=== PATIENT | male | born 1985 | race Caucasian/White ===

== ENCOUNTER 2021-05-05 17:04 | Emergency (ER) | payer OTHER ==
[2021-05-05 19:49] LABS: HEMOGLOBIN 14.7 gm/dl (14.0-17.5); RED BLOOD COUNT 4.31 M/UL (4.20-5.50); WHITE BLOOD COUNT 7.5 K/UL (4.5-11.0)
[2021-05-05 20:10] LABS: BUN/CREATININE RATIO 15 (0-10)
[2021-05-05] MEDS ORDERED: LODINE CAP 300300 MG PO (22:31)
[2021-05-05] MEDS ORDERED: NORFLEX 100 MG100 MG PO (22:31)
== END 2021-05-05 22:50 | disposition home or self-care (01) ==
LOC: ER1 17:04
PROVIDERS: Physician Assistant
DX: S93.601A Unspecified sprain of right foot, initial encounter (principal); S83.91XA Sprain of unspecified site of right knee, initial encounter; S80.01XA Contusion of right knee, initial encounter; S00.01XA Abrasion of scalp, initial encounter; F17.210 Nicotine dependence, cigarettes, uncomplicated; Z88.0 Allergy status to penicillin; V43.52XA Car driver injured in collision with other type car in traffic accident, initial encounter; Y92.410 Unspecified street and highway as the place of occurrence of the external cause
CPT/HCPCS: 70450; 71260; 72125; 72128; 72131; 73564; 73630; 80053; 80307; 81001; 85025; 87086; 96374; 99284; J1885; Q9967